=== PATIENT | male | born 1975 | race Hispanic/Latino ===

== ENCOUNTER → 2019-01-01 | Outpatient (CLI) | payer OTHER ==
[~2019-01-01] MED LIST: NAPROXEN250 MG PO
--- NOTE | 2019-01-01 17:29 | Diagnostic Imaging Report ---
Cervical Spine, 5 views HISTORY: Spondylolisthesis. COMPARISON: None. FINDINGS: Limited sensitivity for detection of subtle fractures and ligamentous abnormalities. On the lateral view, the cervical spine is visualized from the skull base to T1. The alignment is normal. No acute displaced fracture involving the visualized cervical spine. Disc Spaces and Uncovertebral Joints: Unremarkable. Facets: The facet joints are unremarkable. IMPRESSION: No acute radiographic abnormality. Signed by: Dr. Gabrielle Brown M.D. on 01/01/2019 5:26 PM
--- NOTE | 2019-01-01 17:32 | Diagnostic Imaging Report ---
THORACIC SPINE X-RAY - 3 VIEWS HISTORY: ^UPPER BACK PAIN COMPARISON: None available. FINDINGS: Bones: No acute displaced fracture. Osseous alignment is within normal limits. Joints: The joint spaces are well-maintained. Soft tissues: The soft tissues appear unremarkable. IMPRESSION: No acute radiographic abnormality. Signed by: Dr. Gabrielle Brown M.D. on 01/01/2019 5:28 PM
== END ==
LOC: RAD 16:32
PROVIDERS: ATTEND Internal Medicine
DX: M47.812 Spondylosis without myelopathy or radiculopathy, cervical region (principal)
CPT/HCPCS: 72050; 72072

== ENCOUNTER → 2023-02-21 | Outpatient (CLI) | payer BC | LOC: RAD 10:00 | PROVIDERS: ATTEND Internal Medicine | DX: M54.50 Low back pain, unspecified (principal) | CPT/HCPCS: 72110 ==